=== PATIENT | male | born 2000 | race Hispanic/Latino ===

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

== ENCOUNTER 2020-06-19 23:38 | Emergency (ER) | payer OTHER ==
[2020-06-19] MEDS ORDERED: Acetaminophen 500 MG TAB ONE (23:46)
[2020-06-20 00:12] LABS: #Eosinphils 0.1 thou/uL (0.0-0.7); #Lymphocytes 0.6 thou/uL (1.20-3.40); #Monocytes 0.8 thou/uL (0.11-0.59); #Neutrophils 6.2 thou/uL (1.40-6.50); %Basophils 0.6 % (0.0-1.0); %Eosinophils 0.8 % (0.0-10.0); %Lymphocytes 8.3 % (28.0-48.0); %Monocytes 10.3 % (0.0-4.0); %Neutrophils 79.9 % (31.0-61.0); Hemoglobin 17.1 g/dL (14.0-18.0); Mean Corpuscular HGB CONC 35.3 g/dL (32.0-36.0); Mean Corpuscular Hemoglobin 31.7 pg (25.0-35.0); Mean Corpuscular Volume 89.9 fL (78.0-98.0); Mean Platelet Volume 8.3 fL (7.4-10.4); Platelet Count 202 thou/uL (130-400); RBC Distribution Width 11.9 % (11.5-14.5); White Blood Cell (WBC) Count 7.8 thou/uL (4.8-10.8)
[2020-06-20 00:34] LABS: ALT (SGPT) 73 U/L (8-55); AST (SGOT) 35 U/L (10-45); Albumin 4.8 g/dL (3.5-5.0); Alkaline Phosphatase 88 U/L (50-130); Anion Gap 14 mmol/L (10-20); BUN (Urea Nitrogen) 8 mg/dL (8.4-21.0); Bilirubin, Total 1.1 mg/dL (0.2-1.2); Calc. Creatinine Clearance 0 mL/min (70-130); Calcium 9.9 mg/dL (7.8-10.44); Carbon Dioxide 26 mmol/L (22-29); Chloride 102 mmol/L (98-107); Globulin 2.9 g/dL (2.4-3.5); Glucose 109 mg/dL (70-105); Potassium 3.7 mmol/L (3.5-5.1); Protein, Total 7.7 g/dL (6.0-8.3); Sodium 138 mmol/L (136-145)
[2020-06-20 14:25] LABS: SARS-CoV-2 PCR by NAA Not Detected (NotDetected)
== END 2020-06-20 01:26 | disposition home or self-care (01) ==
LOC: ERS 23:38
DX: J06.9 Acute upper respiratory infection, unspecified (principal); Z20.822 Contact with and (suspected) exposure to COVID-19; J45.909 Unspecified asthma, uncomplicated
CPT/HCPCS: 36415; 71045; 80053; 83605; 85025; 87040; 87635; U0003; U0005

== ENCOUNTER 2020-06-23 11:52 | Outpatient (CLI) | payer OTHER | END 2020-06-23 11:53 | disposition home or self-care (01) | LOC: BICRAD 11:52 | PROVIDERS: ATTEND Family Medicine | DX: J34.9 Unspecified disorder of nose and nasal sinuses (principal); R91.8 Other nonspecific abnormal finding of lung field | CPT/HCPCS: 70220; 71046 ==

== ENCOUNTER 2020-06-25 11:42 | Emergency (ER) | payer OTHER ==
[2020-06-25 12:20] LABS: #Basophils 0.1 thou/uL (0.0-0.2); #Lymphocytes 0.5 thou/uL (1.20-3.40); #Monocytes 0.3 thou/uL (0.11-0.59); #Neutrophils 3.4 thou/uL (1.40-6.50); %Basophils 1.5 % (0.0-1.0); %Lymphocytes 12.5 % (28.0-48.0); %Monocytes 6.1 % (0.0-4.0); %Neutrophils 79.8 % (31.0-61.0); Hemoglobin 15.8 g/dL (14.0-18.0); Mean Corpuscular HGB CONC 34.1 g/dL (32.0-36.0); Mean Corpuscular Hemoglobin 30.2 pg (25.0-35.0); Mean Corpuscular Volume 88.6 fL (78.0-98.0); Platelet Count 139 thou/uL (130-400); RBC Distribution Width 11.9 % (11.5-14.5); Red Blood Cell (RBC) Count 5.22 mill/uL (4.00-5.20); White Blood Cell (WBC) Count 4.3 thou/uL (4.8-10.8)
[2020-06-25 12:43] LABS: ALT (SGPT) 66 U/L (8-55); AST (SGOT) 57 U/L (10-45); Albumin 4.2 g/dL (3.5-5.0); Alkaline Phosphatase 50 U/L (50-130); Anion Gap 14 mmol/L (10-20); BUN (Urea Nitrogen) 8 mg/dL (8.4-21.0); Bilirubin, Total 0.9 mg/dL (0.2-1.2); Calc. Creatinine Clearance 0 mL/min (70-130); Calcium 8.7 mg/dL (7.8-10.44); Carbon Dioxide 22 mmol/L (22-29); Chloride 102 mmol/L (98-107); Glucose 108 mg/dL (70-105); Potassium 3.4 mmol/L (3.5-5.1); Protein, Total 7.2 g/dL (6.0-8.3); Sodium 135 mmol/L (136-145)
[2020-06-25] MEDS ORDERED: Ketorolac Tromethamine 30 MG/ML VIAL ONE (14:40)
[2020-06-25 20:27] LABS: SARS-CoV-2 PCR by NAA DETECTED (NotDetected)
== END 2020-06-25 14:56 | disposition home or self-care (01) ==
LOC: ERS 11:42
DX: U07.1 COVID-19 (principal); J45.909 Unspecified asthma, uncomplicated
CPT/HCPCS: 36415; 71045; 80053; 83605; 85025; 87040; 87081; 87430; 87635; J1885; U0003; U0005

== ENCOUNTER 2020-06-25 20:54 | Emergency (ER) | payer OTHER ==
[~2020-06-25 20:54] MED LIST: Iopamidol-370 76% 500 ML 1 ML ONE
[2020-06-25 21:50] LABS: Hemoglobin 14.9 g/dL (14.0-18.0); Mean Corpuscular HGB CONC 35.4 g/dL (32.0-36.0); Mean Corpuscular Hemoglobin 31.5 pg (25.0-35.0); Mean Corpuscular Volume 88.9 fL (78.0-98.0); RBC Distribution Width 11.9 % (11.5-14.5); Red Blood Cell (RBC) Count 4.74 mill/uL (4.00-5.20)
[2020-06-25] MEDS ORDERED: Ketorolac Tromethamine 30 MG/ML VIAL ONE (21:58)
[2020-06-25] MEDS ORDERED: Morphine 4 MG/ML VIAL ONE (21:58)
[2020-06-25 22:08] LABS: ALT (SGPT) 61 U/L (8-55); AST (SGOT) 64 U/L (10-45); Albumin 3.8 g/dL (3.5-5.0); Alkaline Phosphatase 45 U/L (50-130); Anion Gap 13 mmol/L (10-20); BUN (Urea Nitrogen) 8 mg/dL (8.4-21.0); Bilirubin, Total 0.8 mg/dL (0.2-1.2); Calc. Creatinine Clearance 0 mL/min (70-130); Calcium 8.2 mg/dL (7.8-10.44); Carbon Dioxide 22 mmol/L (22-29); Chloride 106 mmol/L (98-107); Globulin 2.6 g/dL (2.4-3.5); Glucose 100 mg/dL (70-105); Potassium 3.5 mmol/L (3.5-5.1); Protein, Total 6.4 g/dL (6.0-8.3); Sodium 137 mmol/L (136-145)
[2020-06-25 22:14] LABS: #Lymphocytes 0.5 thou/uL (1.20-3.40); #Monocytes 0.1 thou/uL (0.11-0.59); #Neutrophils 3.3 thou/uL (1.40-6.50); %Basophils 0.3 % (0.0-1.0); %Eosinophils 0.4 % (0.0-10.0); %Lymphocytes 13.4 % (28.0-48.0); %Monocytes 3.2 % (0.0-4.0); %Neutrophils 82.8 % (31.0-61.0); Mean Platelet Volume 8.6 fL (7.4-10.4); Platelet Count 119 thou/uL (130-400); Platelet Morphology Comment Appears Decreased
== END 2020-06-25 23:43 | disposition home or self-care (01) ==
LOC: ERS 20:54
DX: U07.1 COVID-19 (principal); J45.909 Unspecified asthma, uncomplicated
CPT/HCPCS: 36415; 71045; 71275; 80053; 83605; 85025; 87040; 87081; 87430; 87635; 94760; 96374; 96375; J1885; J2270; J2997; Q9967; U0003; U0005

== ENCOUNTER 2020-06-27 20:50 | Inpatient (IN) | payer OTHER ==
[2020-06-27 21:50] LABS: #Lymphocytes 0.7 thou/uL (1.20-3.40); #Monocytes 0.2 thou/uL (0.11-0.59); #Neutrophils 6.4 thou/uL (1.40-6.50); %Eosinophils 0.1 % (0.0-10.0); %Lymphocytes 9.1 % (28.0-48.0); %Monocytes 2.7 % (0.0-4.0); %Neutrophils 88.2 % (31.0-61.0); Hemoglobin 15.2 g/dL (14.0-18.0); Mean Corpuscular HGB CONC 35.1 g/dL (32.0-36.0); Mean Corpuscular Hemoglobin 31.2 pg (25.0-35.0); Mean Platelet Volume 9.1 fL (7.4-10.4); Platelet Count 153 thou/uL (130-400); RBC Distribution Width 11.8 % (11.5-14.5); Red Blood Cell (RBC) Count 4.86 mill/uL (4.00-5.20); White Blood Cell (WBC) Count 7.2 thou/uL (4.8-10.8)
[2020-06-27] MEDS ORDERED: Dexamethasone 10 MG/ML VIAL ONE (21:56)
[2020-06-27] MEDS ORDERED: Acetaminophen 500 MG TAB ONE (21:56)
[2020-06-27 22:21] LABS: Albumin 3.6 g/dL (3.5-5.0)
[2020-06-27 22:22] LABS: Chloride 103 mmol/L (98-107); Potassium 3.9 mmol/L (3.5-5.1); Sodium 133 mmol/L (136-145)
[2020-06-27 22:23] LABS: Calcium 8.1 mg/dL (7.8-10.44); Glucose 111 mg/dL (70-105); Protein, Total 6.6 g/dL (6.0-8.3)
[2020-06-27 22:25] LABS: Bilirubin, Total 0.7 mg/dL (0.2-1.2); Carbon Dioxide 17 mmol/L (22-29)
[2020-06-27 22:26] LABS: Alkaline Phosphatase 50 U/L (50-130)
[2020-06-27 22:27] LABS: Calc. Creatinine Clearance 0 mL/min (70-130)
[2020-06-27 22:28] LABS: AST (SGOT) 136 U/L (10-45); BUN (Urea Nitrogen) 9 mg/dL (8.4-21.0)
[2020-06-27 22:29] LABS: ALT (SGPT) 114 U/L (8-55)
[2020-06-27] MEDS ORDERED: Ibuprofen 800 MG TAB ONE (22:35)
[2020-06-27] MEDS ORDERED: PROVENTIL INHALER 6.7 G (200 INHALATIONS) ONE (22:35)
[2020-06-27] MEDS ORDERED: Albuterol 200 PUFF (6.7GM INHALER) ONE (22:37)
[2020-06-27 23:45] LABS: Anion Gap 17 mmol/L (10-20)
[2020-06-28] MEDS ORDERED: Acetaminophen 650 MG Suppository PR PRN (00:42)
[2020-06-28] MEDS ORDERED: Ondansetron ODT 4 MG TAB PO PRN (00:42)
[2020-06-28] MEDS ORDERED: Pharmacy to Dose - REMDESIVIR IVPB PRN (01:07)
[2020-06-28 01:46] VITALS: BMI 31.4
[2020-06-28 05:24] LABS: #Basophils 0.1 thou/uL (0.0-0.2); #Lymphocytes 0.5 thou/uL (1.20-3.40); #Monocytes 0.1 thou/uL (0.11-0.59); #Neutrophils 7.9 thou/uL (1.40-6.50); %Basophils 1.6 % (0.0-1.0); %Lymphocytes 5.2 % (28.0-48.0); %Monocytes 1.2 % (0.0-4.0); Hemoglobin 15.8 g/dL (14.0-18.0); Mean Corpuscular HGB CONC 34.2 g/dL (32.0-36.0); Mean Corpuscular Hemoglobin 30.9 pg (25.0-35.0); Mean Corpuscular Volume 90.2 fL (78.0-98.0); Mean Platelet Volume 8.9 fL (7.4-10.4); Platelet Count 158 thou/uL (130-400); Red Blood Cell (RBC) Count 5.13 mill/uL (4.00-5.20); White Blood Cell (WBC) Count 8.6 thou/uL (4.8-10.8)
[2020-06-28 05:49] LABS: Anion Gap 14 mmol/L (10-20); BUN (Urea Nitrogen) 9 mg/dL (8.4-21.0); Calc. Creatinine Clearance 144 mL/min (70-130); Calcium 8.8 mg/dL (7.8-10.44); Carbon Dioxide 26 mmol/L (22-29); Chloride 100 mmol/L (98-107); Glucose 131 mg/dL (70-105); Potassium 4.1 mmol/L (3.5-5.1); Sodium 136 mmol/L (136-145)
[2020-06-28] MEDS ORDERED: REMDESIVIR (EUA) 200 MG in Sodium Chloride 0.9% 250 ML 210 ML IV SCH (08:00)
[2020-06-28] MEDS ORDERED: Enoxaparin Sodium 40 MG/0.4 ML SYRINGE SC SCH (09:00)
[2020-06-28] MEDS: Ascorbic Acid 500 mg Chewable Tablet PO SCH (09:05)
[2020-06-28] MEDS: Cholecalciferol (Vitamin D3) 400 UNITS TAB PO SCH (09:05)
[2020-06-28] MEDS: Dexamethasone 4 mg/ml Vial SLOW IVP SCH (09:06)
[2020-06-28] MEDS: Zinc Sulfate 220 MG CAP PO SCH (09:06)
[2020-06-28] MEDS: Benzonatate 100 MG CAP PO PRN ×2 (10:28→17:24)
[2020-06-28] MEDS: Acetaminophen 325 MG TAB PO PRN ×3 (13:30→21:57)
[2020-06-28] MEDS: GUAIFENESIN SF SOLN 200 MG/10 ML UDCUP PO PRN ×2 (13:30→19:51)
[2020-06-28] MEDS ORDERED: Albuterol 200 PUFF (6.7GM INHALER) INH PRN (18:08)
[2020-06-28] MEDS: Mometasone 200 MCG/Formoterol 5 MCG 120 PUFF INHALER INH SCH (18:29)
[2020-06-28] MEDS: Albuterol 200 PUFF (6.7GM INHALER) INH SCH ×2 (19:05→21:25)
[2020-06-28] MEDS: Famotidine 20 MG TAB PO SCH (19:50)
[2020-06-28] MEDS: Enoxaparin Sodium 40 MG/0.4 ML SYRINGE SC SCH (19:50)
[2020-06-28] MEDS: guaiFENesin ER 600 MG TAB PO SCH (19:51)
[2020-06-28] MEDS: Ibuprofen 200 MG TAB PO PRN (19:51)
[2020-06-29] MEDS: Albuterol 200 PUFF (6.7GM INHALER) INH SCH ×6 (03:15→23:18)
[2020-06-29] MEDS: GUAIFENESIN SF SOLN 200 MG/10 ML UDCUP PO PRN ×3 (05:23→20:45)
[2020-06-29] MEDS: Mometasone 200 MCG/Formoterol 5 MCG 120 PUFF INHALER INH SCH ×2 (05:23→18:11)
[2020-06-29] MEDS: Benzonatate 100 MG CAP PO PRN ×2 (05:23→20:45)
[2020-06-29 06:12] LABS: ALT (SGPT) 86 U/L (8-55); AST (SGOT) 73 U/L (10-45); Albumin 3.5 g/dL (3.5-5.0); Alkaline Phosphatase 42 U/L (50-130); Anion Gap 13 mmol/L (10-20); BUN (Urea Nitrogen) 13 mg/dL (8.4-21.0); Bilirubin, Direct 0.3 mg/dL (0.1-0.3); Bilirubin, Total 0.6 mg/dL (0.2-1.2); Calc. Creatinine Clearance 181 mL/min (70-130); Calcium 8.3 mg/dL (7.8-10.44); Carbon Dioxide 27 mmol/L (22-29); Chloride 101 mmol/L (98-107); Glucose 128 mg/dL (70-105); Magnesium 2.3 mg/dL (1.7-2.2); Protein, Total 6.3 g/dL (6.0-8.3); Sodium 137 mmol/L (136-145)
[2020-06-29 06:19] LABS: Band 16 % (5-11); Hemoglobin 15.2 g/dL (14.0-18.0); Lymphocytes 8 % (28-48); MDiff Complete? YES; Mean Corpuscular HGB CONC 34.7 g/dL (32.0-36.0); Mean Corpuscular Hemoglobin 31.3 pg (25.0-35.0); Mean Platelet Volume 9.2 fL (7.4-10.4); Monocytes 2 % (0-4); Neutrophil 72 % (31-61); Platelet Count 193 thou/uL (130-400); RBC Distribution Width 12.1 % (11.5-14.5); Reactive Lymphocytes 2 % (0-10); Red Blood Cell (RBC) Count 4.86 mill/uL (4.00-5.20); White Blood Cell (WBC) Count 11.6 thou/uL (4.8-10.8)
[2020-06-29] MEDS ORDERED: Cepastat Lozenges 1 LOZ PO PRN (07:00)
[2020-06-29] MEDS: Zinc Sulfate 220 MG CAP PO SCH (09:09)
[2020-06-29] MEDS: Enoxaparin Sodium 40 MG/0.4 ML SYRINGE SC SCH ×2 (09:09→20:45)
[2020-06-29] MEDS: REMDESIVIR (EUA) 100 MG in Sodium Chloride 0.9% 250 ML 230 ML IV SCH (09:09)
[2020-06-29] MEDS: guaiFENesin ER 600 MG TAB PO SCH ×2 (09:10→20:45)
[2020-06-29] MEDS: Multivit, Therapeutic 1 TAB PO SCH (09:10)
[2020-06-29] MEDS: Ascorbic Acid 500 mg Chewable Tablet PO SCH (09:10)
[2020-06-29] MEDS: Famotidine 20 MG TAB PO SCH ×2 (09:10→20:45)
[2020-06-29] MEDS: Cholecalciferol (Vitamin D3) 400 UNITS TAB PO SCH (09:10)
[2020-06-29] MEDS: Dexamethasone 4 mg/ml Vial SLOW IVP SCH (09:11)
[2020-06-29] MEDS: Ondansetron PF 4 MG/2 ML Vial IVP PRN (10:23)
[2020-06-29] MEDS: Sodium Chloride 0.65% Nasal 44 ML BOT EA NARE SCH ×3 (11:59→21:02)
[2020-06-29] MEDS: Ibuprofen 200 MG TAB PO PRN (15:55)
[2020-06-29] MEDS: Acetaminophen 325 MG TAB PO PRN (18:17)
[2020-06-30] MEDS: ALPRAZolam 0.25 MG TAB PO PRN (02:09)
[2020-06-30] MEDS: GUAIFENESIN SF SOLN 200 MG/10 ML UDCUP PO PRN (02:09)
[2020-06-30] MEDS: Ondansetron PF 4 MG/2 ML Vial IVP PRN (02:09)
[2020-06-30] MEDS: Albuterol 200 PUFF (6.7GM INHALER) INH SCH ×6 (02:10→22:35)
[2020-06-30 06:15] LABS: Hemoglobin 14.6 g/dL (14.0-18.0); Mean Corpuscular HGB CONC 33.8 g/dL (32.0-36.0); Mean Corpuscular Hemoglobin 30.6 pg (25.0-35.0); Mean Corpuscular Volume 90.5 fL (78.0-98.0); Mean Platelet Volume 9.2 fL (7.4-10.4); Platelet Count 218 thou/uL (130-400); RBC Distribution Width 12.1 % (11.5-14.5); Red Blood Cell (RBC) Count 4.78 mill/uL (4.00-5.20); White Blood Cell (WBC) Count 8.1 thou/uL (4.8-10.8)
[2020-06-30 06:30] LABS: ALT (SGPT) 75 U/L (8-55); AST (SGOT) 60 U/L (10-45); Albumin 3.4 g/dL (3.5-5.0); Alkaline Phosphatase 39 U/L (50-130); Anion Gap 12 mmol/L (10-20); BUN (Urea Nitrogen) 15 mg/dL (8.4-21.0); Bilirubin, Direct 0.3 mg/dL (0.1-0.3); Bilirubin, Total 0.6 mg/dL (0.2-1.2); Calc. Creatinine Clearance 186 mL/min (70-130); Calcium 8.1 mg/dL (7.8-10.44); Carbon Dioxide 29 mmol/L (22-29); Chloride 102 mmol/L (98-107); Glucose 123 mg/dL (70-105); Potassium 4.1 mmol/L (3.5-5.1); Protein, Total 6.1 g/dL (6.0-8.3); Sodium 139 mmol/L (136-145)
[2020-06-30] MEDS: Mometasone 200 MCG/Formoterol 5 MCG 120 PUFF INHALER INH SCH ×2 (06:30→17:32)
[2020-06-30 07:00] LABS: Band 14 % (5-11); Lymphocytes 16 % (28-48); MDiff Complete? YES; Monocytes 8 % (0-4); Neutrophil 62 % (31-61)
[2020-06-30] MEDS: Ascorbic Acid 500 mg Chewable Tablet PO SCH (09:50)
[2020-06-30] MEDS: Dexamethasone 4 mg/ml Vial SLOW IVP SCH (09:50)
[2020-06-30] MEDS: REMDESIVIR (EUA) 100 MG in Sodium Chloride 0.9% 250 ML 230 ML IV SCH (09:50)
[2020-06-30] MEDS: Cholecalciferol (Vitamin D3) 400 UNITS TAB PO SCH (09:50)
[2020-06-30] MEDS: guaiFENesin ER 600 MG TAB PO SCH ×2 (09:51→21:17)
[2020-06-30] MEDS: Multivit, Therapeutic 1 TAB PO SCH (09:51)
[2020-06-30] MEDS: Enoxaparin Sodium 40 MG/0.4 ML SYRINGE SC SCH ×2 (09:51→21:18)
[2020-06-30] MEDS: Zinc Sulfate 220 MG CAP PO SCH (09:51)
[2020-06-30] MEDS: Famotidine 20 MG TAB PO SCH ×2 (09:51→21:17)
[2020-06-30] MEDS ORDERED: Guaifenesin DM 100-10/5 ML UDCUP PO PRN (10:17)
[2020-06-30] MEDS ORDERED: Cepastat Lozenges 1 LOZ PO PRN (10:18)
[2020-06-30] MEDS: Sodium Chloride 0.65% Nasal 44 ML BOT EA NARE SCH ×4 (11:07→21:18)
[2020-06-30] MEDS: Acetaminophen 325 MG TAB PO PRN (13:14)
[2020-06-30] MEDS: Benzonatate 100 MG CAP PO SCH ×2 (14:44→21:17)
[2020-06-30] MEDS: Cefepime 1 GM in Sodium Chloride 0.9% 100 ML IVPB SCH (17:30)
[2020-06-30] MEDS: Doxycycline 100 MG CAP PO SCH (21:18)
[2020-07-01] MEDS: Albuterol 200 PUFF (6.7GM INHALER) INH SCH ×5 (02:34→18:00)
[2020-07-01] MEDS: Cefepime 1 GM in Sodium Chloride 0.9% 100 ML IVPB SCH ×2 (04:20→17:59)
[2020-07-01] MEDS: ALPRAZolam 0.25 MG TAB PO PRN (04:25)
[2020-07-01 05:48] LABS: Band 2 % (5-11); Hemoglobin 14.7 g/dL (14.0-18.0); Lymphocytes 16 % (28-48); MDiff Complete? YES; Mean Corpuscular HGB CONC 33.1 g/dL (32.0-36.0); Mean Corpuscular Volume 90.7 fL (78.0-98.0); Mean Platelet Volume 9.1 fL (7.4-10.4); Monocytes 14 % (0-4); Neutrophil 65 % (31-61); Platelet Count 269 thou/uL (130-400); RBC Distribution Width 12.2 % (11.5-14.5); Reactive Lymphocytes 3 % (0-10); Red Blood Cell (RBC) Count 4.89 mill/uL (4.00-5.20); White Blood Cell (WBC) Count 7.1 thou/uL (4.8-10.8)
[2020-07-01 05:49] LABS: Anion Gap 14 mmol/L (10-20); BUN (Urea Nitrogen) 16 mg/dL (8.4-21.0); CRP (Inflammatory) 1.15 mg/dL (= or < 0.5); Calc. Creatinine Clearance 186 mL/min (70-130); Calcium 8.3 mg/dL (7.8-10.44); Carbon Dioxide 25 mmol/L (22-29); Chloride 106 mmol/L (98-107); Glucose 100 mg/dL (70-105); Potassium 3.9 mmol/L (3.5-5.1); Sodium 141 mmol/L (136-145)
[2020-07-01 05:50] LABS: ALT (SGPT) 158 U/L (8-55); AST (SGOT) 141 U/L (10-45); Albumin 3.5 g/dL (3.5-5.0); Alkaline Phosphatase 44 U/L (50-130); Bilirubin, Direct 0.4 mg/dL (0.1-0.3); Bilirubin, Total 0.8 mg/dL (0.2-1.2); Protein, Total 6.2 g/dL (6.0-8.3)
[2020-07-01] MEDS: Mometasone 200 MCG/Formoterol 5 MCG 120 PUFF INHALER INH SCH ×2 (07:08→18:00)
[2020-07-01] MEDS: Doxycycline 100 MG CAP PO SCH ×2 (09:26→20:32)
[2020-07-01] MEDS: Multivit, Therapeutic 1 TAB PO SCH (09:26)
[2020-07-01] MEDS: REMDESIVIR (EUA) 100 MG in Sodium Chloride 0.9% 250 ML 230 ML IV SCH (09:26)
[2020-07-01] MEDS: guaiFENesin ER 600 MG TAB PO SCH ×2 (09:26→20:32)
[2020-07-01] MEDS: Cholecalciferol (Vitamin D3) 400 UNITS TAB PO SCH (09:26)
[2020-07-01] MEDS: Famotidine 20 MG TAB PO SCH ×2 (09:27→20:31)
[2020-07-01] MEDS: Benzonatate 100 MG CAP PO SCH ×3 (09:27→20:32)
[2020-07-01] MEDS: Dexamethasone 4 mg/ml Vial SLOW IVP SCH ×2 (09:27→20:32)
[2020-07-01] MEDS: Ascorbic Acid 500 mg Chewable Tablet PO SCH (09:27)
[2020-07-01] MEDS: Zinc Sulfate 220 MG CAP PO SCH (09:27)
[2020-07-01] MEDS: Enoxaparin Sodium 40 MG/0.4 ML SYRINGE SC SCH ×2 (09:31→20:31)
[2020-07-01] MEDS: Sodium Chloride 0.65% Nasal 44 ML BOT EA NARE SCH ×4 (10:06→20:35)
[2020-07-01] MEDS: Ivermectin 3 MG TAB PO SCH (11:41)
[2020-07-01] MEDS ORDERED: ALPRAZolam 0.25 MG TAB PO PRN (13:23)
[2020-07-02] MEDS: Albuterol 200 PUFF (6.7GM INHALER) INH SCH ×7 (00:02→22:49)
[2020-07-02] MEDS: Cefepime 1 GM in Sodium Chloride 0.9% 100 ML IVPB SCH ×2 (05:08→15:43)
[2020-07-02 05:15] LABS: Mean Corpuscular HGB CONC 33.1 g/dL (32.0-36.0); Mean Corpuscular Hemoglobin 30.4 pg (25.0-35.0); Mean Corpuscular Volume 91.6 fL (78.0-98.0); Mean Platelet Volume 8.6 fL (7.4-10.4); Platelet Count 306 thou/uL (130-400); Red Blood Cell (RBC) Count 4.93 mill/uL (4.00-5.20); White Blood Cell (WBC) Count 5.6 thou/uL (4.8-10.8)
[2020-07-02 05:33] LABS: Anion Gap 11 mmol/L (10-20); BUN (Urea Nitrogen) 18 mg/dL (8.4-21.0); CRP (Inflammatory) 0.69 mg/dL (= or < 0.5); Calc. Creatinine Clearance 183 mL/min (70-130); Calcium 8.9 mg/dL (7.8-10.44); Carbon Dioxide 26 mmol/L (22-29); Chloride 106 mmol/L (98-107); Glucose 123 mg/dL (70-105); Potassium 4.4 mmol/L (3.5-5.1); Sodium 139 mmol/L (136-145)
[2020-07-02 05:36] LABS: ALT (SGPT) 216 U/L (8-55); AST (SGOT) 87 U/L (10-45); Albumin 3.5 g/dL (3.5-5.0); Alkaline Phosphatase 47 U/L (50-130); Bilirubin, Direct 0.4 mg/dL (0.1-0.3); Bilirubin, Total 0.8 mg/dL (0.2-1.2); Protein, Total 6.4 g/dL (6.0-8.3)
[2020-07-02 05:50] LABS: Band 6 % (5-11); Lymphocytes 13 % (28-48); MDiff Complete? YES; Monocytes 9 % (0-4); Neutrophil 72 % (31-61)
[2020-07-02] MEDS: Mometasone 200 MCG/Formoterol 5 MCG 120 PUFF INHALER INH SCH ×2 (05:58→18:44)
[2020-07-02] MEDS ORDERED: REMDESIVIR (EUA) 100 MG in Sodium Chloride 0.9% 250 ML 230 ML IV SCH (09:45)
[2020-07-02] MEDS: Multivit, Therapeutic 1 TAB PO SCH (09:46)
[2020-07-02] MEDS: guaiFENesin ER 600 MG TAB PO SCH ×2 (09:46→19:53)
[2020-07-02] MEDS: Benzonatate 100 MG CAP PO SCH ×3 (09:46→19:53)
[2020-07-02] MEDS: Ascorbic Acid 500 mg Chewable Tablet PO SCH (09:46)
[2020-07-02] MEDS: Doxycycline 100 MG CAP PO SCH ×2 (09:46→19:53)
[2020-07-02] MEDS: Zinc Sulfate 220 MG CAP PO SCH (09:46)
[2020-07-02] MEDS: Dexamethasone 4 mg/ml Vial SLOW IVP SCH ×2 (09:46→19:53)
[2020-07-02] MEDS: Cholecalciferol (Vitamin D3) 400 UNITS TAB PO SCH (09:46)
[2020-07-02] MEDS: Famotidine 20 MG TAB PO SCH ×2 (09:46→19:53)
[2020-07-02] MEDS: Enoxaparin Sodium 40 MG/0.4 ML SYRINGE SC SCH ×2 (09:46→19:53)
[2020-07-02] MEDS: Sodium Chloride 0.65% Nasal 44 ML BOT EA NARE SCH ×4 (09:48→19:54)
[2020-07-02] MEDS: Ivermectin 3 MG TAB PO SCH (10:52)
[2020-07-02] MEDS: REMDESIVIR (EUA) 100 MG in Sodium Chloride 0.9% 250 ML 230 ML IV SCH (10:52)
[2020-07-02] MEDS: Ibuprofen 200 MG TAB PO PRN (16:06)
[2020-07-02] MEDS: Acetaminophen 325 MG TAB PO PRN (22:55)
[2020-07-03] MEDS: Albuterol 200 PUFF (6.7GM INHALER) INH SCH ×6 (02:46→21:14)
[2020-07-03] MEDS: Cefepime 1 GM in Sodium Chloride 0.9% 100 ML IVPB SCH ×2 (05:23→17:12)
[2020-07-03 05:54] LABS: ALT (SGPT) 177 U/L (8-55); AST (SGOT) 51 U/L (10-45); Albumin 3.5 g/dL (3.5-5.0); Alkaline Phosphatase 48 U/L (50-130); Bilirubin, Direct 0.4 mg/dL (0.1-0.3); Bilirubin, Total 0.8 mg/dL (0.2-1.2); Protein, Total 6.3 g/dL (6.0-8.3)
[2020-07-03] MEDS: Mometasone 200 MCG/Formoterol 5 MCG 120 PUFF INHALER INH SCH ×2 (06:14→17:12)
[2020-07-03] MEDS: Enoxaparin Sodium 40 MG/0.4 ML SYRINGE SC SCH ×2 (09:09→21:14)
[2020-07-03] MEDS: Multivit, Therapeutic 1 TAB PO SCH (09:10)
[2020-07-03] MEDS: Doxycycline 100 MG CAP PO SCH ×2 (09:10→21:14)
[2020-07-03] MEDS: Benzonatate 100 MG CAP PO SCH ×3 (09:10→21:14)
[2020-07-03] MEDS: Ascorbic Acid 500 mg Chewable Tablet PO SCH (09:10)
[2020-07-03] MEDS: guaiFENesin ER 600 MG TAB PO SCH ×2 (09:10→21:14)
[2020-07-03] MEDS: Cholecalciferol (Vitamin D3) 400 UNITS TAB PO SCH (09:10)
[2020-07-03] MEDS: Zinc Sulfate 220 MG CAP PO SCH (09:10)
[2020-07-03] MEDS: Famotidine 20 MG TAB PO SCH ×2 (09:10→21:14)
[2020-07-03] MEDS: Dexamethasone 4 mg/ml Vial SLOW IVP SCH ×2 (09:11→21:14)
[2020-07-03] MEDS: Sodium Chloride 0.65% Nasal 44 ML BOT EA NARE SCH ×4 (09:14→21:15)
[2020-07-03] MEDS: Ivermectin 3 MG TAB PO SCH (10:51)
[2020-07-03] MEDS: Acetaminophen 325 MG TAB PO PRN (21:46)
[2020-07-04] MEDS ORDERED: Melatonin 3 MG TAB PO PRN (00:36)
[2020-07-04] MEDS: Albuterol 200 PUFF (6.7GM INHALER) INH SCH ×4 (03:40→13:56)
[2020-07-04] MEDS: Mometasone 200 MCG/Formoterol 5 MCG 120 PUFF INHALER INH SCH (06:34)
[2020-07-04] MEDS: Famotidine 20 MG TAB PO SCH (09:58)
[2020-07-04] MEDS: Enoxaparin Sodium 40 MG/0.4 ML SYRINGE SC SCH (09:58)
[2020-07-04] MEDS: Benzonatate 100 MG CAP PO SCH ×2 (09:58→15:22)
[2020-07-04] MEDS: Cholecalciferol (Vitamin D3) 400 UNITS TAB PO SCH (09:58)
[2020-07-04] MEDS: Doxycycline 100 MG CAP PO SCH (09:58)
[2020-07-04] MEDS: guaiFENesin ER 600 MG TAB PO SCH (09:58)
[2020-07-04] MEDS: Multivit, Therapeutic 1 TAB PO SCH (09:59)
[2020-07-04] MEDS: Ascorbic Acid 500 mg Chewable Tablet PO SCH (09:59)
[2020-07-04] MEDS: Zinc Sulfate 220 MG CAP PO SCH (09:59)
[2020-07-04] MEDS: Dexamethasone 4 mg/ml Vial SLOW IVP SCH (09:59)
[2020-07-04] MEDS: Sodium Chloride 0.65% Nasal 44 ML BOT EA NARE SCH ×2 (09:59→13:56)
[2020-07-04] MEDS: Ivermectin 3 MG TAB PO SCH (11:52)
[2020-07-04 12:06] VITALS: BP 119/78; TEMP 98.3
== END 2020-07-04 16:02 | disposition home or self-care (01) | DRG 871 ==
LOC: ERS 20:50 → OBSVTOIN 22:36 → 2SW 22:36
PROVIDERS: ADMIT Student in an Organized Health Care Education/Training Program; ATTEND Internal Medicine
PROC: XW033E5 Introduction of Remdesivir Anti-infective into Peripheral Vein, Percutaneous Approach, New Technology Group 5 (ICD-10-PCS; principal; 2020-06-28)
DX: A41.89 Other specified sepsis (principal); U07.1 COVID-19; J12.82 Pneumonia due to coronavirus disease 2019; J96.01 Acute respiratory failure with hypoxia; E87.1 Hypo-osmolality and hyponatremia; E87.2 Acidosis; R65.20 Severe sepsis without septic shock; E66.9 Obesity, unspecified; J45.909 Unspecified asthma, uncomplicated; Z90.49 Acquired absence of other specified parts of digestive tract; Z68.31 Body mass index [BMI] 31.0-31.9, adult
CPT/HCPCS: 36415; 71045; 80048; 80053; 80076; 82728; 83605; 83735; 85025; 85379; 86140; 87040; 93005; 96374; J0692; J1100; J1650; J2405; J3490; J7050